=== PATIENT | female | born 1995 | race African-American/Black ===

== ENCOUNTER 2017-08-16 08:39 | Emergency (ER) | payer OTHER ==
[~2017-08-16] VITALS: Ht 165.1 cm; Wt 54.8 kg
[~2017-08-16 08:39] MED LIST: BACTRIM,SEPT1 TABLET PO
[2017-08-16 09:34] LABS: HEMATOCRIT 39.2 % (36.0-46.0); MCH 31.3 PG (29.0-34.0); MCHC 34.7 G/DL (30.0-36.0); MCV 90.1 FL (83-99); MEAN PLAT.VOLUME 10.2 uM^3 (9.5-12.4); PLATELET COUNT 214 K/uL (156-360); RBC DIS.WIDTH-CV 11.9 % (11.8-14.6); RBC DIS.WIDTH-SD 39.4 % (39-53); RED BLOOD COUNT 4.35 M/uL (3.80-5.20); WHITE BLOOD COUNT 4.3 K/uL (4.1-10.2)
[2017-08-16 09:46] LABS: CHLORIDE 108 mEq/L (99-109); POTASSIUM 4.1 mEq/L (3.7-5.4); SODIUM 137 mEq/L (136-147)
[2017-08-16 09:48] LABS: GLUCOSE 96 mg/dL (70-99)
[2017-08-16 09:49] LABS: ANION GAP 6 MEQ/L (2-14)
[2017-08-16 09:50] LABS: TOTAL BILIRUBIN 0.4 mg/dL (0.0-1.0)
[2017-08-16 09:52] LABS: ALKALINE PHOSPHATASE 51 IU/L (3-129); GFR ESTIMATE (CALCULATED) > 59 mL/min/
[2017-08-16 09:53] LABS: UREA NITROGEN (BUN) 15 mg/dL (9-23)
[2017-08-16 10:01] LABS: QUANTITATIVE HCG < 4.0 MIU/ML
[2017-08-16 11:00] LABS: ADD MIUA? NO; BILIRUBIN NEGATIVE; BLOOD NEGATIVE; COLOR YELLOW ((YELLOW)); GLUCOSE (STRIP) NEGATIVE; KETONES NEGATIVE; LEUKOCYTES NEGATIVE; NITRITE NEGATIVE; PROTEIN (STRIP) NEGATIVE; SPECIFIC GRAVITY 1.025 (1.000-1.030); UCUL ADDED? NO; UROBILINOGEN 0.2 MG/DL (0.2-1.0)
[2017-08-16 12:02] VITALS: BP 111/77
== END 2017-08-16 12:03 | disposition home or self-care (01) ==
LOC: EME 08:39
DX: K59.00 Constipation, unspecified (principal); R10.9 Unspecified abdominal pain
CPT/HCPCS: 74020; 80053; 81003; 84702; 85027; 99281; 99284

== ENCOUNTER 2017-09-08 22:25 | Emergency (ER) | payer OTHER ==
[~2017-09-08] VITALS: Ht 165.1 cm; Wt 55.7 kg
[2017-09-08 22:54] LABS: APPEARANCE CLEAR ((CLEAR)); BILIRUBIN NEGATIVE; BLOOD NEGATIVE; COLOR YELLOW ((YELLOW)); GLUCOSE (STRIP) NEGATIVE; KETONES NEGATIVE; LEUKOCYTES NEGATIVE; NITRITE NEGATIVE; PROTEIN (STRIP) NEGATIVE; SPECIFIC GRAVITY 1.031 (1.000-1.030); UCUL ADDED? NO
[2017-09-08 23:56] LABS: HEMATOCRIT 36.6 % (36.0-46.0); HEMOGLOBIN 12.7 G/DL (11.9-15.5); MCH 31.4 PG (29.0-34.0); MCHC 34.7 G/DL (30.0-36.0); MCV 90.4 FL (83-99); PLATELET COUNT 225 K/uL (156-360); RBC DIS.WIDTH-CV 11.7 % (11.8-14.6); RBC DIS.WIDTH-SD 38.6 % (39-53); RED BLOOD COUNT 4.05 M/uL (3.80-5.20); WHITE BLOOD COUNT 6.7 K/uL (4.1-10.2)
[2017-09-09 00:11] LABS: ALBUMIN 4.5 g/dL (3.2-4.8); CHLORIDE 105 mEq/L (99-109); SODIUM 138 mEq/L (136-147)
[2017-09-09 00:14] LABS: GLUCOSE 91 mg/dL (70-99); TOTAL PROTEIN 7.3 g/dL (6.4-8.3)
[2017-09-09 00:16] LABS: TOTAL BILIRUBIN 0.3 mg/dL (0.0-1.0)
[2017-09-09 00:17] LABS: ALKALINE PHOSPHATASE 52 IU/L (3-129); GFR ESTIMATE (CALCULATED) > 59 mL/min/
[2017-09-09 00:18] LABS: UREA NITROGEN (BUN) 18 mg/dL (9-23)
[2017-09-09 00:19] LABS: AST (GOT) 17 IU/L (2-34)
[2017-09-09 00:20] LABS: ALT (GPT) 11 IU/L (3-49)
[2017-09-09 00:21] LABS: LIPASE 19 U/L (1.0-51.0)
[2017-09-09] MEDS ORDERED: ZOFRAN4 MG PO (01:52)
[2017-09-09] MEDS ORDERED: BENTYL20 MG PO (01:52)
[2017-09-09 02:16] VITALS: BP 108/66
== END 2017-09-09 02:19 | disposition home or self-care (01) ==
LOC: EME 22:25
PROVIDERS: Emergency Medicine
DX: R10.84 Generalized abdominal pain (principal); R30.0 Dysuria
CPT/HCPCS: 80053; 81003; 83690; 84703; 85027; 99281; 99284